=== PATIENT | female | born 1955 | race Caucasian/White ===

== ENCOUNTER 2017-01-24 12:27 | Observation (INO) | payer OTHER ==
[~2017-01-24] VITALS: Ht 160 cm; Wt 82.4 kg
[2017-01-24] MEDS ORDERED: ASPIRIN 81 MG TABLET CHEW ONE (13:48)
[2017-01-24] MEDS ORDERED: SODIUM CHLORIDE FLUSH 10ML SYR IVF ONE (14:00)
[2017-01-24] MEDS ORDERED: ASPIRIN 81 MG TABLET CHEW PO ONE (14:00)
[2017-01-24 14:16] LABS: ASPARTATE AMINO TRANSFERASE 11 U/L (15-37); BLOOD UREA NITROGEN 21 mg/dL (7-18)
[2017-01-24 14:27] LABS: IS PT STATUS REG ER OR PRE ER? YES
[2017-01-24] MEDS ORDERED: KETOROLAC 30 MG/1 ML IVPush ONE (15:00)
[2017-01-24] MEDS ORDERED: GABA300C10 PO (15:11)
[2017-01-24] MEDS ORDERED: MELO15TA6 PO (15:11)
[2017-01-24] MEDS ORDERED: HYDR-3240 PO (15:13)
[2017-01-24] MEDS ORDERED: CETI-158 PO (15:13)
[2017-01-24] MEDS ORDERED: TUMERIC PO (15:14)
[2017-01-24] MEDS ORDERED: KETOROLAC 30 MG/1 ML ONE (15:17)
[2017-01-24] MEDS ORDERED: ZOLPIDEM 5MG TABLET PO PRN (16:00)
[2017-01-24] MEDS ORDERED: GUAIFENESIN/DM 200-20MG, 10ML UDC PO PRN (16:00)
[2017-01-24] MEDS ORDERED: ONDANSETRON ODT 4 MG PO PRN (16:00)
[2017-01-24] MEDS ORDERED: ENALAPRILAT 1.25 MG/ML, 2ML IVPush PRN (16:00)
[2017-01-24] MEDS ORDERED: NITROGLYCERIN 0.4 MG/SPRAY SL PRN (16:00)
[2017-01-24] MEDS ORDERED: ACETAMINOPHEN 325 MG TABLET PO PRN (16:00)
[2017-01-24 16:07] LABS: PATH.CAST-FLAG NOT PRESENT; SPERM-FLAG NOT PRESENT; SRC-FLAG NOT PRESENT; XTAL-FLAG NOT PRESENT; YLC-FLAG NOT PRESENT
[2017-01-24] MEDS ORDERED: OMNIPAQUE 350 MG/ML, 100ML BOTTLE ONE (16:35)
[2017-01-24 16:39] LABS: IS PT STATUS REG ER OR PRE ER? YES
[2017-01-24 17:15] VITALS: BP 131/85
[2017-01-24] MEDS: ENOXAPARIN 40 MG/0.4 ML SQ SCH (17:55)
[2017-01-24] MEDS: GABAPENTIN 300 MG CAPSULE PO SCH ×2 (17:55→21:27)
[2017-01-24] MEDS: HYDROcodone/APAP 5/325 TABLET PO SCH (17:55)
[2017-01-24 19:55] VITALS: BP 122/83
[2017-01-24 22:16] LABS: IS PT STATUS REG ER OR PRE ER? NO
[2017-01-25] VITALS (9 sets, daily range): BP systolic 101–144; BP diastolic 65–88
[2017-01-25] MEDS: NITROGLYCERIN 0.4 MG BOTTLE (25 TABS) SL PRN ×3 (00:25→00:42)
[2017-01-25] MEDS ORDERED: NITROGLYCERIN 0.4 MG BOTTLE (25 TABS) SL PRN (00:30)
[2017-01-25] MEDS ORDERED: NITROGLYCERIN 0.4 MG/SPRAY SL PRN (00:30)
[2017-01-25] MEDS: HYDROcodone/APAP 5/325 TABLET PO SCH ×3 (01:01→12:26)
[2017-01-25] MEDS: MELOXICAM 15 MG TABLET PO SCH (09:58)
[2017-01-25] MEDS: GABAPENTIN 300 MG CAPSULE PO SCH ×3 (09:59→20:38)
[2017-01-25] MEDS: PANTOPROZOLE 40MG TABLET PO SCH (09:59)
[2017-01-25] MEDS: CETIRIZINE 10 MG TABLET PO SCH (09:59)
[2017-01-25] MEDS: MORPHINE SULFATE 4 MG/ML, 1ML IVPush PRN ×3 (12:36→20:38)
[2017-01-25] MEDS: DOCUSATE 100 MG CAPSULE PO PRN (12:36)
[2017-01-25] MEDS ORDERED: methylPREDNISolone 4mg DOSE PACK PO SCH (16:00)
[2017-01-25] MEDS: ENOXAPARIN 40 MG/0.4 ML SQ SCH (17:00)
[2017-01-25] MEDS ORDERED: DIPHENHYDRAMINE 25 MG CAPSULE PO PRN ×2 (17:00→21:00)
[2017-01-25] MEDS: DIPHENHYDRAMINE 50 MG/ML, 1ML IVPush PRN ×2 (17:32→23:43)
[2017-01-26 02:40] VITALS: BP 102/67
[2017-01-26] MEDS: HYDROcodone/APAP 10/325 MG TABLET PO PRN ×2 (03:46→08:21)
[2017-01-26 05:55] LABS: BLOOD UREA NITROGEN 19 mg/dL (7-18)
[2017-01-26 06:35] VITALS: BP 113/80
[2017-01-26] MEDS: GABAPENTIN 300 MG CAPSULE PO SCH (08:20)
[2017-01-26] MEDS: CETIRIZINE 10 MG TABLET PO SCH (08:21)
[2017-01-26] MEDS: PANTOPROZOLE 40MG TABLET PO SCH (08:21)
[2017-01-26] MEDS: MELOXICAM 15 MG TABLET PO SCH (08:21)
[2017-01-26] MEDS ORDERED: HYDR-3307 PO (09:41)
[2017-01-26] MEDS ORDERED: OMEP-110 PO (09:41)
[2017-01-26] MEDS ORDERED: METH4TAB2 PO (09:41)
[2017-01-26] MEDS: DOCUSATE 100 MG CAPSULE PO PRN (09:49)
== END 2017-01-26 11:40 | disposition home or self-care (01) ==
LOC: ED 13:55 → EDIP 14:41 → UNDOADMOB 14:41 → INTOOBSV 14:41 → EDIP 15:41 → 5SO 16:51 → DCLOUNGE 01-26 11:18
DX: R07.89 Other chest pain (principal); M54.2 Cervicalgia; M54.5 Low back pain; I73.00 Raynaud's syndrome without gangrene; D72.829 Elevated white blood cell count, unspecified; I10 Essential (primary) hypertension; G89.29 Other chronic pain; K21.9 Gastro-esophageal reflux disease without esophagitis; M48.02 Spinal stenosis, cervical region; Z82.49 Family history of ischemic heart disease and other diseases of the circulatory system; Z87.891 Personal history of nicotine dependence
CPT/HCPCS: 36415; 71010; 71275; 80048; 80053; 80061; 81001; 83690; 84484; 85025; 85379; 85651; 86140; 87086; 93005; 93017; 96372; 96374; 96375; 96376; 99285; G0378; J1200; J1650; J1885; J7509; Q0163; Q9967